=== PATIENT | male | born 1960 | race Caucasian/White ===

== ENCOUNTER → 2023-10-08 | Outpatient (CLI) | payer OTHER, SELFPAY ==
--- NOTE | 2023-10-08 13:05 | CT_ITS ---
STUDY: CT LEFT SHOULDER REASON FOR EXAM: Male, 63 years old. PRE-OP RADIATION DOSAGE (If Supplied By Facility): CTDIvol = ( 31.13 ) mGy, DLP = ( 1034.49 ) mGycm TECHNIQUE: The patient was scanned in a multi detector CT scanner. High resolution transaxial imaging was performed without the administration of intravenous contrast material. Sagittal and coronal images were reconstructed. Individualized dose optimization techniques were used for this CT. COMPARISON: None. FINDINGS: There is tendinosis/partial tearing of the subscapularis tendon with moderate atrophy and fatty infiltration of the subscapularis muscle. Normal glenohumeral articulation. Normal glenoid rim, neck and visualized scapula. Normal humeral head, neck and tuberosities. Normal coracoid process. Normal visualized lateral clavicle. There is mild acromioclavicular arthrosis. There is a Type II morphology (curved), with a neutral orientation. Normal visualized muscles and soft tissue structures. CT/Extremity Upper without Contra IMPRESSION: Tendinosis/partial tearing of the subscapularis tendon with moderate atrophy and fatty infiltration of the subscapularis muscle. Mild acromioclavicular arthrosis. Electronically Signed: Stanford Zimmerman MD at 15:18 EST ,
== END | disposition home or self-care (01) ==
LOC: CT 12:59
PROVIDERS: PCP Family Medicine; Referring Provider Student in an Organized Health Care Education/Training Program; Visit Provider Student in an Organized Health Care Education/Training Program
DX: M19.012 Primary osteoarthritis, left shoulder (principal); M25.512 Pain in left shoulder
CPT/HCPCS: 73200

== ENCOUNTER 2023-10-28 11:21 | Observation (INO) | payer OTHER, SELFPAY ==
[2023-10-08 14:06] LABS: Absolute Lymphocyte Count 1.42 X10^3/uL (0.83-4.51); Absolute Neutrophil Count 5.1 X10^3/uL (2.0-7.7); Basophil# 0.06 X10^3/uL; Basophil% 0.8 % (0-1); Eosinophil# 0.17 X10^3/uL; Eosinophils% 2.3 % (0-5); Hematocrit 44.8 % (40-54); Hemoglobin 15.2 g/dL (13.0-16.5); Lymphocyte # 1.42 X10^3/ul (0.83-4.51); Lymphocyte % 19.1 % (19-41); Mean Corp Hgb Conc 33.9 g/dL (32-36); Mean Corpuscular Hgb 31.3 pg (27.0-32.0); Mean Corpuscular Volume 92.4 fL (80-94); Mean Platelet Vol. 8.9 fl (6.2-12.0); Monocyte# 0.64 X10^3/uL; Monocyte% 8.6 % (0-10); NRBC Flagged by Analyzer 0 % (0-5); Neutrophil # 5.13 X10^3/uL (2.7-7.7); Neutrophil % 68.8 % (47-70); Platelet Count 218 K/mm3 (150-450); RBC Distribution Width CV 12.4 % (11.6-14.6); RBC Distribution Width SD 42.4 fl (35.1-43.9); Red Blood Count 4.85 M/mm3 (4.6-6.2); White Blood Count 7.5 K/mm3 (4.4-11.0)
[2023-10-08 14:59] LABS: Albumin, Serum 3.7 g/dL (3.2-5.0); Anion Gap 4 (5-15); BUN 24 mg/dL (7-18); BUN/Creat Ratio 17.9 RATIO (10-20); Calcium,Total 9.4 mg/dL (8.5-10.1); Chloride 107 mmol/L (98-107); Creatinine, Serum 1.34 mg/dL (0.70-1.30); EST Glomerular Filtration Rate 57 mL/min (>60); Est Glom Filt Rate - Afr Amer 69 mL/min (>60); Glucose 112 mg/dL (74-106); Magnesium 2.4 mg/dL (1.6-2.6); Potassium 4.2 mmol/L (3.5-5.1); Sodium Level 141 mmol/L (136-145)
[2023-10-28] VITALS (13 sets, daily range): BP systolic 121–149; BP diastolic 79–113; PULSE 64–96; RESP 14–22; TEMP 36.4–36.7; O2SAT 92–97; BMI 30.9
--- NOTE | 2023-10-28 | SHO_PTH ---
PATHOLOGY RESULTS PATIENT: SAE BYRD LOC: MS3 U#:[id number] AGE/SX: 63/M [place]OM[place] [facility] [place]10[place]28/[address]: Dr. Kamran Dill DO : 1960 BED: 1 DIS: 10/29/2023 SPEC #: [id number] RECD: 10/28/23 13:19 STATUS: MICHAEL LIVIER #: [id number] DANIEL: 10/28/23 00:[address]: Kamran Dill DEPT: SURGICAL PATHOLOGY RECD BY: Fuentes Parra ENTERED: 10/28/23 13:19 SP TYPE: HUMERUS OTHR DR: Baylee Alexander, STRIPPER APPRENTICE-C Tissues: Humerus, NOS Procedures: Decalcification bone/plaque Surgery Specimen Level IV HEADER OPERATION: ERAS, left reverse total shoulder arthroplasty PRE-OP DIAGNOSIS: Left massive rotator cuff repair TISSUE SUBMITTED: Left humeral head MICROSCOPIC DIAGNOSIS Left humeral head, total shoulder replacement/resection: Humeral head with minimal degenerative osteoarthritic changes. SJ:crystal 11/03/2023 COMMENT Case has been reviewed in consultation with Dr. Stone who concurs with the above diagnosis. IDC:AM MICROSCOPIC DESCRIPTION Slides are reviewed. GROSS DESCRIPTION Received is one container labeled with the patient's name and designated left humeral head. The specimen consists of a humeral head measuring 4.5 x 4.5 x 1.5 cm. The articular surface shows focal area of erosion. No soft tissue is identified. Varnisher Pl[employer] sections are submitted in two cassettes after decalcification. / SPARKLE:crystal 10/28/2023 TC:5 CPT: 72504, 07717
[2023-10-28] MEDS: Acetaminophen 500 MG Tablet 1000 MG PO ×3 (06:07→21:58)
[2023-10-28] MEDS: Lactated Ringers 1,000 ML 999 ML IV ×2 (06:07→09:31)
[2023-10-28] MEDS: Gabapentin 600 MG Tablet PO (06:07)
[2023-10-28] MEDS: Celecoxib 200 MG Capsule 400 MG PO (06:07)
[2023-10-28] MEDS: Magnesium 1 GM over 15 mins IV (06:07)
[2023-10-28 07:17] LABS: Bedside Glucose 118 mg/dL (74-106)
[2023-10-28] MEDS: Cefazolin 2 GM in 0.9% Normal Saline (100mL Bag) 100 ML IV (07:27)
[2023-10-28] MEDS: TXA 1000mg in NS100 100ml (IVPB at Incision) 660 MG IV (07:40)
[2023-10-28] MEDS: Lactated Ringers 1,000 ML 75 ML IV (08:40)
[2023-10-28] MEDS: TXA 1000mg in NS100 100ml (IVPB at Closure) 660 MG IV (09:24)
--- NOTE | 2023-10-28 10:02 | SUR.PHASEI ---
PATIENT WITH FREQUENT NON-PRODUCTIVE COUGH, REPORTEDLY HAD VIRAL INFECTION w/ COUGH A FEW WEEKS AGO AND THIS COUGH IS RESIDUAL.
--- NOTE | 2023-10-28 10:05 | RAD_ITS ---
STUDY: X-RAY - LEFT SHOULDER REASON FOR EXAM: Male, 63 years old. post op -- AP and Lateral X-Ray of operative shoulder in PACU TECHNIQUE: 3 view(s) of the shoulder. COMPARISON: None. FINDINGS: Grossly satisfactory appearance of left total shoulder arthroplasty. Normal articulation. Normal alignment. Normal visualized proximal humerus. The soft tissue structures are unremarkable. Normal visualized pulmonary apex. RAD/Shoulder min 2 Views IMPRESSION: Satisfactory appearance of a left total shoulder arthroplasty. Electronically Signed: Sim Morse MD at 17:08 EST ,
[2023-10-28] MEDS: Lactated Ringers 1,000 ML 125 ML IV ×2 (11:32→20:04)
[2023-10-28] MEDS: Senna/Docusate Sodium 1 Tablet 2 TABLET PO ×2 (11:55→21:58)
[2023-10-28] MEDS: Famotidine 20 MG Tablet PO (11:55)
[2023-10-28] MEDS: Lisinopril 10 MG Tablet PO (11:55)
[2023-10-28] MEDS: Cefazolin 1 GM/50 ML BAG IV ×2 (15:42→23:59)
--- NOTE | 2023-10-28 16:05 | OP.PCM_ITS ---
Report of Operation Date of Procedure: 10/28/23 Description of Surgical Findings:: Preoperative diagnosis: Left shoulder rotator cuff arthropathy Postoperative diagnosis: Left shoulder rotator cuff arthropathy Procedure: Left Reverse total shoulder arthroplasty Surgeon: Kamran Dill DO Associate Professor Of Sociology: Elizabeth Bhat PA-C Anesthesia: General endotracheal Oven Tender: Laron Weiss CRNA Complications: None apparent Drains: None Estimated blood loss: 200 cc Urinary output: None IV fluids: 1200 cc crystalloid Specimens: None Surgical implants: Tornier Aequalis PerFORM+ reversed baseplate 29 mm diameter +3 mm lateralization, standard glenosphere cobalt chrome 39 mm diameter, Tornier perform inlay stem size #3, + 3 mm retentive size number 3 39 mm diameter polyethylene insert, short central post and peripheral screws x4. Surgical indications: This is a 63-year-old male with persistent left shoulder pain. He did have worsening symptoms over the last several months. X-rays revealed rotator cuff arthropathy. MRI was obtained by another provider demonstrated massive left rotator cuff tear at which was chronic and irreparable. I recommended a reverse shoulder arthroplasty. We obtained a preoperative CT scan for planning. The risks, benefits, alternatives the procedure was reviewed with the patient and he agreed to proceed. Risks included but were not limited to bleeding, infection, instability, loss of life or limb, risk of anesthesia, neurovascular injury, persistent pain, stiffness, prolonged immobilization, need for additional surgery, loosening of orthopedic hardware. He expressed understanding and wished to proceed with surgery. Surgical details: Patient arrived to [facility] morning of the procedure and was greeted by the same day surgery staff. Prior to his procedure, I greeted the patient in the preoperative holding area I identified the patient by name, record number, and date of . Informed consent was confirmed. The operative extremity was marked. All questions were answered to patient satisfaction. An interscalene block was administered prior to procedure by anesthesia staff for postoperative and intraoperative analgesia. At time of his procedure, patient was brought to the operative suite and positioned supine on a standard table with a beachchair attachment. General anesthesia was induced after all bony prominences were well-padded. Endotracheal tube was placed. After adequate anesthesia and securing the tube, we prepared the patient to be positioned in the beachchair position. A well- padded wet process miller head was applied. The nonoperative extremity was placed in a well arm gold. He was then brought into the beachchair position after we confirmed an appropriate blood pressure. We then spun the bed 45 degrees. The operative extremity was then prepared. In the butterfly wing of the bed was removed and a well-padded torso strap was applied to secure the patient to the bed. The operative extremity was now free. A preoperative hydrogen peroxide scrub was performed. We then prepped and draped the left upper extremity in normal, sterile orthopedic fashion with ChloraPrep. We then performed a timeout with all parties in attendance in agreement with the side, site, and operation be performed. 2 g Ancef was administered prior to incision by anesthesia staff, as well as 1 g TXA IV. No concerns were voiced and we elected to proceed. I first marked a standard deltopectoral incision just lateral to the coracoid process in line with the long axis of the humerus. Skin was sharply incised with 10 blade scalpel. I then dissected bluntly through the subcutaneous layers and found the fat stripe between the deltoid and pectoralis major. The cephalic vein was then identified and protected. It was retracted laterally with the deltoid. I then bluntly dissected underneath the deltoid with a Tavarez elevator. Alexander retractor was placed. The upper 1 cm of the pectoralis major was released. I then identified the long head of the biceps tendon in the intertubercular groove. This was tenodesed in situ with #2 FiberWire. I then amputated the biceps proximal to the tenodesis site and followed the tendon to the supraglenoid tubercle where it was amputated. This identified the lesser an d greater tuberosities. The supraspinatus was completely torn and retracted with an exposed greater tuberosity. Near complete subscapularis tearing was noted as well. Remaining inferior subscapularis was released with Bovie cautery. Humeral head was then dislocated anteriorly. Appropriate access to the humeral head was confirmed. I then subluxed the humeral head posteriorly with a Fukuda retractor placed around the posterior lip of the glenoid. Inferior capsule was tension. I was able to palpate the axillary nerve. Inferior capsule was then released to the 4 o'clock position of the glenoid face. 3 sided subscapularis release was performed with Bovie cautery. I then remove the Fukuda retractor and redislocated the shoulder anteriorly. I then made a anatomic neck cut of the cartilaginous surface of the humeral head. Sizing plate for a size # 3 stem was utilized to determine appropriate reaming size. A central pin was placed engaging the lateral cortex of the humerus. A size # 3 reamer was used to ream the humeral metaphysis and prepare for the inlay stem. A canal finding reamer was utilized prior to sequential broaching to a size # 3 short stem with excellent rotational and axial purchase in the humerus. I remove the broach handle left the size # [address] I then subluxed the humerus posterior to the glenoid. I then placed retractors around the posterior and anterior glenoid to expose the glenoid. Glenoid labrum was removed with Bovie cautery protecting the axillary nerve. We then used the custom guide from [employer] to position our centering pin , exiting approximately 25 mm from the joint surface along the anterior scapula. Guide was removed and pin was analyzed and compared to preoperative planning. It appeared to be in appropriate position. The Nautilus shaped reamer was then placed over top of the centering pin. I reamed a flat surface of the glenoid. We then removed the reamer and used the cannulated drill for the short central post. Post and baseplate was assembled on the back table. We then inserted the baseplate and central post the assembled baseplate to an appropriate depth with good press-fit purchase. A [place] was used to confirm depth. Cortical screws then were placed in the peripheral holes with good purchase. The baseplate had excellent purchase and the entire scapula would rotate with rotation of the baseplate. We then impacted the 39 mm glenosphere with a standard eccentricity and tightened the locking screw mechanism. We then removed retractors and turned our attention back to the humerus. I placed a standard +3 millimeters retentive polyethylene insert. I then reduced the shoulder. There was excellent range of motion and stability in all planes of motion. We selected this as our final size. We removed trials from the humerus after final dislocation. I copiously irrigated the canal. Broach was placed on hand and then impacted to an appropriate depth. Final + 3 mm retentive polyethylene insert was placed. Final reduction was then performed. We then copiously irrigated the wound with sterile Betadine and normal saline solution. We reapproximated the interval with 0 Vicryl suture. Subcutaneous layers were reapproximated with 2 -0 Vicryl suture. Skin was finally running V- Loc 3-0 Monocryl suture and Dermabond. A sterile silver Mepilex dressing was applied. Patient was then placed in an ultra sling. Patient tolerated procedure well without complication. He was positioned back in the supine position extubated in the operative suite. He was [place] the [place] and subsequently to PACU in stable condition. Need for skilled clinical assistant: Elizabeth Bhat PA-C was critical to the outcome of the case. During the course of the procedure the physician clinical assistant played a vital role. Her intimate knowledge of my steps in the procedure aided in safe and expedient completion of the procedure. The PA played a vital role in positioning particularly in obtaining the appropriate positioning. The PA was also vital in the retraction of soft tissues during the exposure and protecting vital structures. The PA was also vital and protecting soft tissues during times of bony cuts. She also played a vital role in closure with my direct supervision. The PA was also important during reduction and dislocation of the joint and trials intraoperatively. Intraoperative medications: 2 g Ancef IV, 1 g TXA IV x2 Post Operative Plan: Patient was placed in observation overnight for early convalescence and medical monitoring. Patient lives at home alone and is likely to be discharged home if stable tomorrow. Weightbearing: Nonweightbearing left upper extremity, okay for pendulums. Range of motion of wrist elbow and hand as tolerated. Antibiotics: 2 g Ancef IV prior to incision, 24 hours IV antibiotics postoperatively DVT Prophylaxis: Aspirin enteric-coated 81 mg twice daily starting tomorrow Pratt: None Dressing: Maintain silver dressing x7 days. Okay to shower dressing on started on day 4 X-Rays: 2 weeks postop in the office Pain Medication: Oxycodone Rx upon discharge Follow-up: 2 weeks post-operatively with me in the office
[2023-10-28] MEDS: oxyCODONE 5 MG Tablet PO (21:57)
[2023-10-29] VITALS: BP 154/94; PULSE 81; RESP 16; TEMP 36.5; O2SAT 92
[2023-10-29] MEDS: oxyCODONE 5 MG Tablet PO ×2 (02:29→06:40)
[2023-10-29] MEDS: Lactated Ringers 1,000 ML 125 ML IV (04:14)
[2023-10-29 05:31] VITALS: BP 162/109; PULSE 77; RESP 18; TEMP 36.6; O2SAT 94
[2023-10-29] MEDS: Acetaminophen 500 MG Tablet 1000 MG PO (05:34)
[2023-10-29 06:31] LABS: Hematocrit 40.2 % (40-54); Hemoglobin 12.9 g/dL (13.0-16.5); Mean Corp Hgb Conc 32.1 g/dL (32-36); Mean Corpuscular Hgb 30.3 pg (27.0-32.0); Mean Corpuscular Volume 94.4 fL (80-94); Mean Platelet Vol. 8.9 fl (6.2-12.0); Platelet Count 230 K/mm3 (150-450); RBC Distribution Width CV 12.3 % (11.6-14.6); RBC Distribution Width SD 42.4 fl (35.1-43.9); Red Blood Count 4.26 M/mm3 (4.6-6.2); White Blood Count 16.6 K/mm3 (4.4-11.0)
[2023-10-29 06:47] LABS: Anion Gap 4 (5-15); BUN 19 mg/dL (7-18); BUN/Creat Ratio 15.2 RATIO (10-20); Calcium,Total 8.9 mg/dL (8.5-10.1); Chloride 107 mmol/L (98-107); Creatinine, Serum 1.25 mg/dL (0.70-1.30); EST Glomerular Filtration Rate 62 mL/min (>60); Est Glom Filt Rate - Afr Amer 75 mL/min (>60); Glucose 111 mg/dL (74-106); Potassium 4.1 mmol/L (3.5-5.1); Sodium Level 137 mmol/L (136-145)
--- NOTE | 2023-10-29 07:14 | PN.ORTHO_ITS ---
Subjective Subjective Patient seen and examined. Denies any new complaints. Patient believes his nerve block wore off around 1 AM last night. He states his pain is well- controlled with current pain regimen. Denies fevers, chills, nausea or vomiting, chest pain or shortness of breath. Patient continues with occasional nonproductive General cough but states the oxycodone is helping with cough suppression. Objective Data Objective Data Vital Signs: Vital Signs Temp Pulse Resp BP Pulse Ox O2 Del Method O2 Flow Rate 97.9 F 77 18 162/109 H 94 Room Air 4 10/29/23 05:31 10/29/23 05:31 10/29/23 05:31 10/29/23 05:31 10/29/23 05:10/29/23 05:10/28/23 10:49 Oxygen Flow Rate (L/min) 4 Oxygen Delivery Method Room Air Weight: 209 lb 7.026 oz Body Mass Index (BMI) 30.9 Intake & Output: Intake and Output for Last 24 Hours 10/27/23 10/28/23 10/29/23 23:59 23:59 23:59 Intake Total 4482.00 / 4482.00 2150 / 2150 Balance 4482.00 / 4482.00 215 / 0 Lab / Micro Data 10/29/23 05:22 10/29/23 05:22 Labs: Laboratory Results - last 24 hr 10/28/23 06:03: POC Glucose 118 H 10/29/23 05:22: WBC 16.6 H, RBC 4.26 L, Hgb 12.9 L, Hct 40.2, MCV 94.4 H, MCH 30.3, MCHC 32.1, RDW Std Deviation 42.4, RDW Coeff of Alise 12.3, Plt Count 230, MPV 8.9, Sodium 137, Potassium 4.1, Chloride 107, Carbon Dioxide 26.0, Anion Gap 4 L, BUN 19 H, Creatinine 1.25, Estim Creat Clear Calc 68.80, Est GFR (MDRD) Af Amer 75, Est GFR (MDRD) Non-Af 62, BUN/Creatinine Ratio 15.2, Glucose 111 H, Calcium 8.9 Micro: Microbiology 10/15/23 11:40 Nasal Secretion Nasal Screen MRSA/MSSA - Final Radiography Diagnostic Testing: Radiology Impression Shoulder X-Ray 10/28/23 10:05 IMPRESSION: Satisfactory appearance of a left total shoulder arthroplasty. Electronically Signed: Sim Morse MD at 17:08 EST , Physical Exam Narrative General - A&Ox3, NAD. VSS/AF. Left upper Extremity -UltraSling in place. SILT & motor intact in radial, ulnar, musculocutaneous, axillary, and median nerve distributions. Radial, ulnar pulses 2+. Compartments soft and compressible. BCR in finger tips. Incisional dressing C/D/I. Assessment & Plan Assessment/Plan (1) Postoperative pain: PLAN: POD# 1 s/p left reverse shoulder arthroplasty - Pain control - OT -awaiting initial eval. Okay for range of motion left elbow wrist and hand, pendulums left shoulder. - DVT PPX -aspirin 81 mg twice daily, SCDs, EDWARD valderrama, early mobilization -Patient doing well. Plan for discharge home today after seen by occupational therapy. Follow-up in 2 weeks for wound check, x-rays, and and initiation of outpatient physical therapy.
--- NOTE | 2023-10-29 07:14 | DCINST_ITS ---
Discharge Instructions Follow Up Care Test Results: Test results from this visit will be discussed in further detail at your follow- up appointment, if applicable. Discharge Plan Admission Admit Date/Time: 10/28/23 11:21 Primary Reason for Your Visit: Left reverse shoulder arthroplasty Attending Provider: Kamran Dill Primary Care Provider: Baylee Aelxander NP Instructions Additional Instructions / Restrictions: Follow preprinted instructions from your surgeons office Discharge Orders/Prescriptions Prescriptions: New acetaminophen 500 mg Tablet 1,000 mg PO Q8 7 Days Qty: 42 0RF aspirin 81 mg Tablet,Delayed Release (Dr/Ec) 81 mg PO BID 28 Days Qty: 56 0RF sennosides-docusate sodium [Stool Softener-Stimulant Laxat] 8.6-50 mg Tablet 2 tab PO BID 7 Days Qty: 28 0RF meloxicam 7.5 mg Tablet 7.5 mg PO BID 30 Days Qty: 60 0RF oxycodone 5 mg Tablet 5 - 10 mg PO Q4H PRN PRN (Reason: Pain Score 4-10) 7 Days Qty: 42 0RF Continued lisinopril 10 mg tablet 10 mg PO DAILY Discontinued acetaminophen [Tylenol] 325 MG tablet 650 mg PO Q6H PRN PRN (Reason: Pain Or Fever) Patient Comments: mild pain reliever meloxicam 15 mg tablet 15 mg PO DAILY Referrals / Follow Up: Kamran Dill DO [Med Staff - Active Staff] - 11/12/23 Jose F Trejo MD [Med Staff - Active Staff] - Disposition Disposition (needs filled in before D/C Order can be placed): Home, Self Care
[2023-10-29] MEDS: Lisinopril 10 MG Tablet PO (07:27)
[2023-10-29] MEDS: Aspirin E.C. 81 MG Tablet PO (07:27)
[2023-10-29] MEDS: Senna/Docusate Sodium 1 Tablet 2 TABLET PO (07:27)
[2023-10-29] MEDS: Famotidine 20 MG Tablet PO (07:27)
[2023-10-29] MEDS: Meloxicam 7.5 MG Tablet PO (07:27)
[2023-10-29 08:14] VITALS: BP 154/101; PULSE 59; RESP 14; TEMP 36.5; O2SAT 94
--- NOTE | 2023-10-29 09:54 | CASEMGMT ---
ADRIEL DALLAS Assessment Face to Face with patient for initial transition planning/care coordination assessment. ADRIEL DALLAS introduced self and role at [facility], pt voices understanding. Pt is A&Ox4 and is resting comfortably in chair and is calm. Care providers, pharmacy, and demographics verified. Admitting dx: Total Lt Shoulder LACE Strata: 1 PCP: Baylee Alexander (FUR BLOWER) Specialists: Aniyah Headley Pharmacy: [facility] Insurance: [employer] Prescription Benefit: Yes LNOK: Shazia Mendez (Daughter) Living Arrangements: Pt lives alone in a single story home with a basement with handrails and flat entrance. Pt states the basement steps are equipped with handrails. Denies issues. ADLs/IADLs: Ind Transportation: Drives. Pt has a SO that drives. DME: Pt states he has a walker and cane and lift chair at home but does not use. States walk in shower has grab bars. Denies all other DME. HHC/SNF: Denies Pt?s goal: Home Plan: DC home today via his SO with no additional needs. Shanda Pacheco RN, CM
--- NOTE | 2023-10-29 09:56 | PHA.DC.MC.R ---
Pharmacy [facility] has performed discharge medication reconciliation and counseling for this patient. The patient's discharge medication list was reviewed for discrepancies and discrepancies were resolved. The patient was counseled on the following discharge medications and changes in medications for homegoing were reviewed. The Reason for Use, instructions for use, and potential side effects were reviewed for all new medications. The patient's questions regarding all of their medications were answered. 1. Acetaminophen 1000 mg PO Q8H x 7 days 2. Aspirin 81 mg PO BID x 4 weeks 3. Meloxicam 7.5 mg PO BID 4. Oxycodone 5-10 mg PO Q4H PRN 5. Senna/docusate 2 tabs PO BID The patient was able to verbally demonstrate an understanding of their discharge medications. Medications at Discharge Home Medications lisinopril 10 mg tablet 10 mg PO DAILY HYPERTENSION 10/01/23 acetaminophen 500 mg tablet 1,000 mg (2 x 500 mg) PO Q8 7 days #42 tabs 10/29/23 aspirin 81 mg tablet,delayed release 81 mg PO BID 4 weeks #56 tabs 10/29/23 meloxicam 7.5 mg tablet 7.5 mg PO BID 30 days #60 tabs 10/29/23 oxycodone 5 mg tablet 5 - 10 mg (1 - 2 x 5 mg) PO Q4H PRN PRN Pain Score 4-10 7 days #42 tabs 10/29/23 sennosides 8.6 mg-docusate sodium 50 mg tablet (Stool Softener-Stimulant Laxative) 2 tab PO BID 7 days #28 tabs 10/29/23
== END 2023-10-29 10:32 | disposition home or self-care (01) ==
LOC: SDC 11:44 → MS3 11:44
PROVIDERS: Admitting Provider Student in an Organized Health Care Education/Training Program; PCP Nurse Practitioner Family; Referring Provider Student in an Organized Health Care Education/Training Program; Visit Provider Student in an Organized Health Care Education/Training Program
PROC: (CPT 23472; principal; 2023-10-28 07:00)
DX: M19.012 Primary osteoarthritis, left shoulder (principal); I10 Essential (primary) hypertension; M75.102 Unspecified rotator cuff tear or rupture of left shoulder, not specified as traumatic; Z79.899 Other long term (current) drug therapy
CPT/HCPCS: 23472; 01638; 64415; 36415; 73030; 80048; 82040; 82962; 83735; 85025; 85027; 87081; 88305; 88311; 93005; 94668; 96361; 96365; 96366; 97166; 99221; C1776; J7120; G0378; J2405; J3475

== ENCOUNTER → 2024-07-06 | Outpatient (CLI) | payer OTHER, SELFPAY ==
--- NOTE | 2024-07-06 16:54 | CT_ITS ---
EXAM: CT RIGHT LOWER EXTREMITY WITHOUT INTRAVENOUS CONTRAST CLINICAL INDICATION: PRE OP/OA TECHNIQUE: Helically acquired images were obtained of the right lower extremity without intravenous contrast. 2-D reformats were performed by the technologist. CTDIvol = ( 18.76 ) mGy, DLP = ( 1386.61 ) mGycm This CT exam was performed using one or more of the following dose reduction techniques: automated exposure control, adjustment of the mA and/or kV according to patient size, and/or use of iterative reconstruction technique. COMPARISON: No relevant prior studies available. FINDINGS: BONES/JOINTS: Mild to moderate right hip osteoarthrosis. A right hip joint effusion appears to be present. Moderate to severe tricompartmental osteoarthrosis involving the knee which is worse at the medial femorotibial compartment. At least moderate suprapatellar joint effusion. No acute or healing fracture or malalignment. No unusual lytic or sclerotic lesions of bone. SOFT TISSUES: Moderate to large suprapatellar joint effusion. No soft tissue swelling or gas. No radiopaque foreign body. CT/Extremity Lower without Contra IMPRESSION: 1. 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 2. Ancillary findings as above. Electronically Signed: Pedro Boothe MD at 4:48 EDT ,
== END | disposition home or self-care (01) ==
LOC: CT 16:52
PROVIDERS: PCP Nurse Practitioner Family; Referring Provider Physician Assistant; Visit Provider Physician Assistant
DX: M17.11 Unilateral primary osteoarthritis, right knee (principal)
CPT/HCPCS: 73700

== ENCOUNTER 2024-07-10 05:24 | Day surgery (SDC) | payer OTHER, SELFPAY ==
[2024-06-19 16:23] LABS: Absolute Lymphocyte Count 1.64 X10^3/uL (0.83-4.51); Absolute Neutrophil Count 7.4 X10^3/uL (2.0-7.7); Basophil# 0.07 X10^3/uL; Basophil% 0.7 % (0-1); Eosinophil# 0.15 X10^3/uL; Eosinophils% 1.5 % (0-5); Hematocrit 44.6 % (40-54); Hemoglobin 14.5 g/dL (13.0-16.5); Lymphocyte # 1.64 X10^3/ul (0.83-4.51); Lymphocyte % 16.1 % (19-41); Mean Corp Hgb Conc 32.5 g/dL (32-36); Mean Corpuscular Hgb 30.2 pg (27.0-32.0); Mean Corpuscular Volume 92.9 fL (80-94); Mean Platelet Vol. 8.6 fl (6.2-12.0); Monocyte# 0.81 X10^3/uL; NRBC Flagged by Analyzer 0 % (0-5); Neutrophil # 7.41 X10^3/uL (2.7-7.7); Neutrophil % 72.7 % (47-70); Platelet Count 236 K/mm3 (150-450); RBC Distribution Width CV 12.8 % (11.6-14.6); RBC Distribution Width SD 43.5 fl (35.1-43.9); White Blood Count 10.2 K/mm3 (4.4-11.0)
[2024-06-19 17:01] LABS: Albumin, Serum 3.6 g/dL (3.2-5.0); Anion Gap 8 (5-15); BUN 21 mg/dL (7-18); Calcium,Total 9.3 mg/dL (8.5-10.1); Chloride 105 mmol/L (98-107); EST Glomerular Filtration Rate 54 mL/min (>60); Est Glom Filt Rate - Afr Amer 66 mL/min (>60); Glucose 101 mg/dL (74-106); Magnesium 2.5 mg/dL (1.6-2.6); Potassium 4.4 mmol/L (3.5-5.1); Sodium Level 140 mmol/L (136-145)
[2024-07-10] VITALS (12 sets, daily range): BP systolic 108–156; BP diastolic 77–105; PULSE 53–90; RESP 13–18; TEMP 36.2–36.8; O2SAT 91–99; BMI 31.6
[2024-07-10] MEDS: Magnesium 1 GM over 15 mins IV (06:08)
[2024-07-10] MEDS: Lactated Ringers 1,000 ML 15 ML IV (06:08)
[2024-07-10] MEDS: Gabapentin 600 MG Tablet PO (06:09)
[2024-07-10] MEDS: Acetaminophen 500 MG Tablet 1000 MG PO ×2 (06:09→14:05)
[2024-07-10] MEDS: Celecoxib 200 MG Capsule 400 MG PO (06:10)
[2024-07-10] MEDS: Vancomycin HCl 1,500 MG in 0.9% Normal Saline (500mL Bag) 500 ML 250 MG IV (06:30)
--- NOTE | 2024-07-10 07:05 | PRE.ANES_ITS ---
ASA Classification* ASA Classification ASA Classification: 2 Assessment & Plan Anesthesia* Anesthesia Assessment Anesthesia Assessment: Discussed sedation and/or anesthesia options, risks, benefits, and alternatives with patient/parents/legal guardian/POA. Questions invited. The patient/parents/legal guardian/POA seems to understand and agrees to proceed with anesthesia plan. Reviewed the physical assessment, medical history, allergy history and patient home medications list prior to surgery/procedure/anesthetic and documented any changes. Performed airway and anesthesia risk assessments. Anesthesia Type Anesthesia Type: Spinal (block consented) Anesthesia Focused Assessment* Temperature: 98.1 F Pulse Rate: 63 Blood Pressure: 156/105 Respiratory Rate: 16 Pulse Ox: 97 Airway Assessment Mouth opens: >3 cm Mallampati Score: II Focused Labs Anesthesia Preop lab: CBC WBC 10.2 K/mm3 (4.4-11.0) 06/19/24 16:09 RBC 4.80 M/mm3 (4.6-6.2) 06/19/24 16:09 Hgb 14.5 g/dL (13.0-16.5) 06/19/24 16:09 Hct 44.6 % (40-54) 06/19/24 16:09 Plt Count 236 K/mm3 (150-450) 06/19/24 16:09 CHEMISTRY Potassium 4.4 mmol/L (3.5-5.1) 06/19/24 16:09 Sodium 140 mmol/L (136-145) 06/19/24 16:09 Magnesium 2.5 mg/dL (1.6-2.6) 06/19/24 16:09 Phosphorus 3.1 mg/dL (2.5-4.9) 05/23/14 05:45 BUN 21 mg/dL (7-18) H 06/19/24 16:09 Creatinine 1.40 mg/dL (0.70-1.30) H 06/19/24 16:09 Glucose 101 mg/dL (74-106) 06/19/24 16:09 POC Glucose 118 mg/dL (74-106) H 10/28/23 06:03 TSH 1.73 uIU/mL (0.358-3.74) 05/03/15 11:11 COAG Pre-Assessment Diagnosis/Proposed Procedure Planned Operative Procedure(s): (R) ROBOTIC ASSISTED RIGHT TOTAL KNEE ARTHROPLASTY, ERAS Anesthesia History 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 When Was Last Pacemaker Check QUESTION #4 FULL TEXT: You/Your Family Experience fever (hyperthermia) with Anesthesia Last Oral Intake Last Oral intake: Last Oral Intake NPO since 06:10 07/10/24 06:12 Meds taken in AM with sips of Yes 07/10/24 06:12 water? Meds patient instructed to see mar 07/10/24 06:12 take am of surgery PONV PONV - computer help desk specialist: PONV - computer help desk specialist Female No 06/16/24 15:22 HX of Motion Sickness No 06/16/24 15:22 HX of N/V After Surgery No 06/16/24 15:22 Non-Smoker Yes 06/16/24 15:22 Duration of Surgery greater Yes 06/16/24 15:22 than 60 minutes Number of Risk Factors 2 06/16/24 15:22 PONV Score Moderate Risk 06/16/24 15:22 Height & Weight Height & Weight: Anesthesia: Height & Weight Height 5 ft 9 in 07/10/24 06:12 Weight: 97.069 kg 07/10/24 06:12 Body Mass Index (BMI) 31.6 07/10/24 06:12 Respiratory Assessment Respiratory Assessment - computer help desk specialist: Respiratory Tract Infection Hx - computer help desk specialist Hx Respiratory Tract Infection No 06/16/24 15:22 STOP Sleep Apnea STOP Sleep Apnea - computer help desk specialist: STOP Sleep Apnea - computer help desk specialist Hx Hypertension Yes 06/16/24 15:22 Hx Sleep Apnea Yes 06/16/24 15:22 CPAP Yes: UNABLE TO WEAR MASK 06/16/24 15:22 BIPAP No 06/16/24 15:22 Do you snore loudly (louder than talking or can be heard Do you often feel tired/ fatigued/ sleepy during daytime? Has anyone observed you stop breathing during sleep? STOP Results Positive 06/16/24 15:22 QUESTION #5 FULL TEXT : Do you snore loudly (louder than talking or can be heard through closed doors)? 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 Specify any problems Hx of Preganancy in last 3 N/A 06/16/24 15:22 Months Nurse Filling Out Transfusion NBUCHER 06/16/24 15:22 & Questions: Date: 06/16/24 06/16/24 15:22 Time: 15:23 06/16/24 15:22 Patient unable to answer at this time (ie. confused, unrespo /Reproduction History /Reproductive History - computer help desk specialist: /Reproductive Hx- computer help desk specialist Hx Now Gestational Age (in weeks): EDC: Hx Hx Para Hx Section SAB Active Medications Active Medications: Current Medications Generic Name Dose Route Start Last Admin Trade Name Leatha PRN Reason Stop Dose Admin Acetaminophen 1,000 mg 07/10/24 08:00 07/10/24 06:09 Acetaminophen 500 Mg Tablet PO 07/10/24 08:01 1,000 mg X1 ONE Administration Celecoxib 400 mg 07/10/24 08:00 07/10/24 06:10 Celecoxib 200 Mg Capsule PO 07/10/24 08:01 400 mg X1 ONE Administration Sodium Chloride 77.4 ml/ 0 ml 07/10/24 08:00 Ropivacaine 200 mg/ OPERA.SITE 07/10/24 08:01 Epinephrine HCl 0.6 mg/ X1 ONE Ketorolac Tromethamine 30 mg/ Morphine Sulfate 5 mg Dexamethasone Sodium Phosphate 10 mg 07/10/24 08:00 Dexamethasone 10 Mg/Ml Vial IV 07/10/24 08:01 X1 ONE Gabapentin 600 mg 07/10/24 08:00 07/10/24 06:09 Gabapentin 600 Mg Tablet PO 07/10/24 08:01 600 mg X1 ONE Administration Cefazolin Sodium 2 gm/ Sodium 110 mls @ 150 mls/hr 07/10/24 08:00 Chloride IV 07/10/24 08:43 PREOP ONE Tranexamic Acid 1,000 mg/ 110 mls @ 660 mls/hr 07/10/24 08:00 Sodium Chloride IV 07/10/24 08:09 X1 ONE Tranexamic Acid 1,000 mg/ 110 mls @ 660 mls/hr 07/10/24 09:00 Sodium Chloride IV 07/10/24 09:09 X1 ONE Lactated Ringer's 1,000 mls @ 125 mls/hr 07/10/24 10:00 IV 07/10/24 17:59 .Q8H NARESH Vancomycin HCl 1,500 mg/ 530 mls @ 250 mls/hr 07/10/24 06:30 07/10/24 06:30 Sodium Chloride IV 07/10/24 08:37 250 mls/hr PREOP ONE Administration Magnesium Sulfate 1 gm/ 102 mls @ 408 mls/hr 07/10/24 08:00 07/10/24 06:40 Dextrose IV 07/10/24 08:14 Infused X1 ONE Infusion Lactated Ringer's 1,000 mls @ 15 mls/hr 07/10/24 05:45 07/10/24 06:08 IV 15 mls/hr .Q48H NARESH Administration Insulin Human Lispro 1 - 6 unit 07/10/24 08:00 Insulin Lispro 100 Unit/Ml Insuln.Pen SC 07/10/24 14:00 Q4H PRN PRN BG>/= 180, SEE PROTOCOL Protocol PFSH Medical History MRSA (methicillin resistant staph aureus) culture positive Wears glasses Wears contact lenses Alcohol use Seizures Non-smoker Sleep apnea History of echocardiogram Hypertension Home Medications ?Medication ?Instructions ?Recorded ?Last Taken ?Type ascorbic acid (vitamin C) 500 mg 500 mg PO DAILY 06/16/24 Unknown History capsule,extended release (Vitamin C) losartan 25 mg tablet 25 mg PO DAILY 06/16/24 07/10/24 History magnesium 200 mg tablet 500 mg PO DAILY 06/16/24 Unknown History Allergy/AdvReac Type Severity Reaction Status Date / Time No Known Allergies Allergy Verified 07/10/24 05:58 Surgical History History of reverse total replacement of right shoulder joint (~10/2023) History of shoulder surgery History of hernia surgery History of back surgery Social History Smoking Status: Never smoker Review of Systems (Anesthesia) ROS Narrative System reviewed and no additional complaints, except as documented.
--- NOTE | 2024-07-10 07:30 | KNEE_PTH ---
PATIENT: SAE BYRD [place] [facility] [id number] AGE/SX: 64/M ROOM: RE07/10/[address]: Dr. Kamran Dill DO : 1960 BED: DIS: 07/10/2024 SPEC #: [id number] RECD: 07/10/24 11:07 STATUS: MICHAEL REErik #: [id number] DANIEL: 07/10/24 07:[address]: Kamran Dill DEPT: SURGICAL PATHOLOGY RECD BY: Konstantin Power ENTERED: 07/10/24 11:41 SP TYPE: TOTAL KNEE OTHR DR: KISHA Bowers Tissues: Knee, NOS Procedures: Decalcification bone/plaque Surgery Specimen Level IV HEADER OPERATION: Robotic assisted total knee arthroplasty PRE-OP DIAGNOSIS: Severe grade IV osteoarthritis right knee TISSUE SUBMITTED: Bone and soft tissue of right knee MICROSCOPIC DIAGNOSIS Bone and tissue of right knee, total knee resection: Severe degenerative joint disease. Polarizable crystals consistent with pseudogout. AM: 07/13/2024 MICROSCOPIC DESCRIPTION Slides are reviewed. GROSS DESCRIPTION Received is one container designated bone and soft tissue right knee. The specimen consists of multiple fragments of braxton-yellow bone measuring in aggregate 11.0 x 11.0 x 3.0 cm. Also in the specimen container are multiple fragments of yellow-white soft tissue predominantly consists of fibrocartilaginous tissue measuring in aggregate 6.0 x 5.5 x 1.2 cm. Soft tissue shows focal chalky-white deposits. A number of bony fragments contain articular surfaces consistent with tibial plateau and femoral condyle and displaying prominent osteophyte formation, eburnation and bone erosion. Guide Setter sections are submitted in two cassettes as follows: 1 - soft tissue, 2 - bone after decalcification. / SPARKLE. 07/10/2024 TC:5 CPT: 07911, 09721
[2024-07-10] MEDS: Cefazolin 2 GM in 0.9% Normal Saline (100mL Bag) 100 ML IV (07:35)
[2024-07-10] MEDS: TXA 1000mg in NS100 100ml (IVPB at Incision) 660 MG IV (07:49)
[2024-07-10] MEDS: dexAMETHasone 10 MG/ML Vial IV (07:52)
[2024-07-10] MEDS: TXA 1000mg in NS100 100ml (IVPB at Closure) 660 MG IV (08:46)
[2024-07-10] MEDS: JPS (Morphine 10mg/ml) OPERA.SITE (08:56)
[2024-07-10 09:24] LABS: Bedside Glucose 98 mg/dL (74-106)
--- NOTE | 2024-07-10 09:32 | RAD_ITS ---
INDICATION: post op -- in PACU EXAMINATION/TECHNIQUE: X-RAY - RIGHT XR Knee 1 or 2 Views 3 VIEWS COMPARISON: Prior study dated: 08/09/2016 FINDINGS: SOFT TISSUES: Skin nati. Soft tissue swelling and gas in soft tissues consistent with recent surgery. BONES/JOINTS: Status post total knee arthroplasty. Unremarkable alignment. No sclerotic or destructive changes observed. RAD/Knee 1 or 2 Views IMPRESSION: Status post knee arthroplasty. Electronically Signed: Rohan Stapleton MD at 10:43 EDT ,
--- NOTE | 2024-07-10 09:34 | PCM.POST.ANE ---
Anesthesia: Postop Eval I Current Vital Signs Temperature: 98.2 F Pulse Rate: 64 Blood Pressure: 108/77 Respiratory Rate: 13 Pulse Ox: 99 Oxygen Delivery Method: Room Air Assessment Airway patent: Yes Spontaneous unlabored respirations: Yes Mental status: Awake and Calm nausea: No Vomiting: No Anesthesia Complication: No Fluid Hydration Crystalloid volume administer (ml): 600 Total IV fluid infused: 600 Progress Note Anesthesia document: Postop Eval 1 completed: Yes
--- NOTE | 2024-07-10 09:37 | PCM.OPRPT ---
Report of Operation Date of Procedure: 07/10/24 Description of Surgical Findings:: Preoperative diagnosis: Right knee primary osteoarthritis Postoperative diagnosis: Right knee primary osteoarthritis Procedure: Robotic arm assisted right total knee arthroplasty Surgeon: Kamran Dill DO Service Director: Elizabeth Bhat PA-C Anesthesia: Spinal with sedation, adductor canal block Anesthesiologist: Dr. Stevenson Complications: None apparent Drains: None Estimated blood loss: 100 cc Urinary output: None recorded IV fluids: 1000 cc crystalloid Specimens: Total knee resections Surgical implants: [place] triathlon cruciate retaining femoral #4 press-fit, primary tibial baseplate #5 press-fit, triathlon X3 tibial bearing insert CS 11 mm Indications: This is a 64-year-old male seen in the outpatient setting diagnosed with left knee osteoarthritis with significant varus deformity. He failed nonoperative management with intra-articular corticosteroid injections, activity modification, bracing, [id number] analgesics. X-rays revealed grade 4 medial compartment changes. I recommended a right total knee arthroplasty. The risk, benefits, alternatives to procedure reviewed with patient at length and he agreed to proceed. Risks included but were not limited to bleeding, infection, loss of life or limb, need for additional surgery, persistent pain, intraoperative or postoperative fracture, instability, loosening of components, wound complications, stiffness, neurovascular injury, DVT or PE. Patient expressed understanding these risks and wished to proceed with surgery. Informed consent was obtained in the outpatient setting. Description of procedure: Patient was identified in the preoperative holding area by name, medical record number, and date of . Informed consent was confirmed with the patient. The operative knee was marked with a surgical marker. At time of his procedure, patient brought to the operative suite and positioned supine a standard operating table. Anesthesia then administered a spinal anesthetic. He was then repositioned in the supine position with all bony prominences well-padded. We then placed a well-padded pneumatic tourniquet on the right upper thigh. The right upper extremity was brought across patient's chest throughout the procedure. We then prepped and draped the right lower extremity in a normal, sterile orthopedic fashion. We performed a timeout with all parties in attendance in agreement with the side, site, operation be performed. No concerns were voiced and would like to proceed with surgery. 2 g Ancef was administered prior to the incision by anesthesia staff as well as 1 g IV TXA. First exsanguinated the right lower extremity with a Esmarch bandage. Tourniquet was inflated to 250 mmHg which remained up for approximately 45 minutes. Esmarch was removed. I planned a standard midline approach to the left knee approximately 15 cm in length. Skin was sharply incised with a 10 blade scalpel developing full-thickness layers down to the retinaculum. Layers were developed identifying the VMO. I then planned a standard medial parapatellar arthrotomy performed in flexion. The anterior horn of the medial meniscus was released. Hoffa's fat pad was then released. I then everted the patella in extension and brought the knee into 90 degrees of flexion. The anterior horn of the lateral meniscus was then released. The ACL was split in its mid substance with a 10 blade. We then brought the knee back into extension. The patella was examined. Osteophytes were noted but only grade 1?2 chondromalacia was apparent. Peripheral osteophytes were removed with a rongeur. I elected to leave the patella quechan without resurfacing. I then placed pins in the metaphyseal distal femur medial to lateral for the Jake arrays. In similar fashion, I made a 2 cm incision approximately a handsbreadth distal to the tibial tubercle along the medial aspect of the tibia, drilling 2 bicortical pins for the tibial array. The knee was brought into flexion. The patella was subluxed laterally but not everted. Medial lateral retractors were placed. We then utilized the [employer] software to confirm our planned surgical procedure and oriented with the patient's osseous anatomy. All checks with the [employer] system were confirmed. Patient had a significant flexible varus deformity after performing stress examination utilizing the [employer] software. We elected to place the tibial baseplate in approximately 0 degrees of varus to allow for appropriate balancing. Sawblade was then brought in. I first started with the tibial cut, ensuring protection of the MCL and patellar tendon. A tibial wafer was then excised. I then proceeded to make the posterior femoral, anterior, anterior chamfer cuts with the same blade. Ligaments were protected with [employer] retractors. Sawblade was then exchanged to perform the distal femoral and posterior chamfer cuts. The robot was then removed from the surgical field. Remaining loose bone and meniscus was excised carefully. Posterior osteophytes were removed from the distal femur with a curved osteotome and rongeur. Trial components were then placed with an 11 mm poly. Balance was excellent in both extension and 90 degrees flexion. No mid flexion instability was apparent Patella was trialed. Tracking was excellent. We then marked for tibial baseplate. Distal femoral pegs were drilled. Tibial keel was punched. Trials were removed. Periarticular block was administered. The wound was copiously irrigated with normal saline solution. Components were then impacted in place with excellent pullout strength. Tourniquet was deflated. Hemostasis was excellent. An additional 1 g TXA was administered IV. I selected a size11 mm polyethylene which was placed and impacted per lithographing machine operator recommendations. Final components appeared very well balanced with excellent range of motion. The wound was copiously irrigated with normal saline solution. Capsule was closed watertight with #1 strata fix barbed suture. Deeper bursal layer was reapproximated with 0 Vicryl suture. Dermis was reapproximated buried interrupted 2-0 Vicryl suture. Skin was finally reapproximated nati. Patient tolerated the procedure well without apparent complication. He was safely awakened in the operative suite, transferred to his hospital bed and subsequently to PACU in stable condition. Need for skilled certified nursing assistant instructor: Elizabeth Bhat PA-C was critical to the outcome of the case. During the course of the procedure the physician certified nursing assistant instructor played a vital role. Her intimate knowledge of my steps in the procedure aided in safe and expedient completion of the procedure. The PA played a vital role in positioning particularly in obtaining the appropriate positioning. The PA was also vital in the retraction of soft tissues during the exposure and projecting vital structures. The PA was also vital and protecting soft tissues during times of bony cuts. She also played a vital role in closure with my direct supervision. The PA was also important during reduction and dislocation of the joint and trials intraoperatively. Post Operative Plan: Plan is to discharge the patient after meeting same-day surgery criteria being seen by physical therapy. Weightbearing: Range of motion and weightbearing as tolerated right lower extremity. Antibiotics: Ancef 1 g prior to discharge DVT Prophylaxis: Multimodal with 81 mg aspirin twice daily, SCDs, EDWARD hose, early mobilization Pratt: None Dressing: Maintain silver dressing x5 days X-Rays: 2-week x-rays in the office. Follow-up: 2 weeks in my office for staple removal
--- NOTE | 2024-07-10 11:50 | POSTOPAN2_ITS ---
Anesthesia Postop Eval I Sum Postop Eval Completion status Anesthesia document: Postop Eval 1 completed: Yes Anesthesia Postop Eval I Summary Anesthesia Postop Eval I Summary: Anesthesia Postop Eval I: Assessment Summary Airway patent Yes 07/10/24 09:35 CARBON PASTE [email or web address] [email or web address] Spontaneous unlabored Yes 07/10/24 09:35 CARBON PASTE MIXER [email or web address] respirations Mental status Awake,Calm 07/10/24 09:35 CARBON PASTE [email or web address] [email or web address] nausea No 07/10/24 09:35 CARBON PASTE [email or web address] [email or web address] Vomiting No 07/10/24 09:35 CARBON PASTE [email or web address] [email or web address] Anesthesia Postop Eval I: Fluid Summary Crystalloid volume administer 600 07/10/24 09:35 CARBON PASTE [email or web address] [email or web address] (ml) Colloids volume administered ( ml) Blood Product volume administered (ml) Total IV fluid infused 600 07/10/24 09:35 CARBON PASTE [email or web address] [email or web address] Anesthesia Postop Eval I: Summary Notes Anesthesia Complication No 07/10/24 09:35 CARBON PASTE [email or web address] [email or web address] Anesthesia Complication Comment: Post-operative progress note Anesthesia: Postop Eval II Evaluation Mental status: Awake Pain Level: 1 nausea: No Vomiting: No
--- NOTE | 2024-07-10 11:50 | PCM.POSTANE2 ---
Anesthesia Postop Eval I Sum Postop Eval Completion status Anesthesia document: Postop Eval 1 completed: Yes Anesthesia Postop Eval I Summary Anesthesia Postop Eval I Summary: Anesthesia Postop Eval I: Assessment Summary Airway patent Yes 07/10/24 09:35 [email or web address] Spontaneous unlabored Yes 07/10/24 09:35 [email or web address] [email or web address] respirations Mental status Awake,Calm 07/10/24 09:35 [email or web address] [email or web address] nausea No 07/10/24 09:35 [email or web address] [email or web address] Vomiting No 07/10/24 09:35 [email or web address] Anesthesia Postop Eval I: Fluid Summary Crystalloid volume administer 600 07/10/24 09:35 [email or web address] (ml) Colloids volume administered ( ml) Blood Product volume administered (ml) Total IV fluid infused 600 07/10/24 09:35 [email or web address] [email or web address] Anesthesia Postop Eval I: Summary Notes Anesthesia Complication No 07/10/24 09:35 [email or web address] [email or web address] Anesthesia Complication Comment: Post-operative progress note Anesthesia: Postop Eval II Evaluation Mental status: Awake Pain Level: 1 nausea: No Vomiting: No
[2024-07-10] MEDS: Lactated Ringers 1,000 ML 125 ML IV (12:35)
[2024-07-10] MEDS: Cefazolin 1 GM/50 ML BAG IV (13:22)
== END 2024-07-10 16:10 | disposition home or self-care (01) ==
LOC: SDC 05:28 → AC 05:28
PROVIDERS: PCP Nurse Practitioner Family; Referring Provider Student in an Organized Health Care Education/Training Program; Visit Provider Student in an Organized Health Care Education/Training Program
PROC: 0SRC0JZ Replacement of Right Knee Joint with Synthetic Substitute, Open Approach (ICD-10-PCS; CPT 27447; principal; 2024-07-10 07:00)
DX: M17.11 Unilateral primary osteoarthritis, right knee (principal); M11.261 Other chondrocalcinosis, right knee; I10 Essential (primary) hypertension; Z79.899 Other long term (current) drug therapy
CPT/HCPCS: 27447; S2900; 01402; 64447; 36415; 73560; 80048; 82040; 82962; 83735; 85025; 87077; 87081; 88305; 88311; 97162; C1776; J7040; J7120; J2405; J3475

== ENCOUNTER → 2024-09-14 | Outpatient (CLI) | payer OTHER, SELFPAY ==
--- NOTE | 2024-09-14 16:44 | CT_ITS ---
EXAM: CT LEFT LOWER EXTREMITY WITHOUT INTRAVENOUS CONTRAST CLINICAL INDICATION: OSTEOARTHRITIS TECHNIQUE: Helically acquired images were obtained of the left lower extremity without intravenous contrast. 2-D reformats were performed by the technologist. CTDIvol = ( 28.14 ) mGy, DLP = ( 1305.20 ) mGycm This CT exam was performed using one or more of the following dose reduction techniques: automated exposure control, adjustment of the mA and/or kV according to patient size, and/or use of iterative reconstruction technique. COMPARISON: No relevant prior studies available. FINDINGS: BONES/JOINTS: Severe tricompartmental osteoarthrosis which is worse at the medial femorotibial compartment with slight lateral dictation of the tibia relative to the femur on a degenerative basis. Moderate to large joint effusion with no significant synovitis or intra-articular ossific bodies. No acute fracture. No subluxation. Normal alignment. SOFT TISSUES: No soft tissue swelling or gas. No radiopaque foreign body. BLADDER: Decompressed appearance of the bladder. OTHER FINDINGS: Distal colonic diverticulosis without acute diverticulitis. CT/Extremity Lower without Contra IMPRESSION: 1. Severe tricompartmental osteoarthrosis which is worse at the medial femorotibial compartment with slight lateral dictation of the tibia relative to the femur on a degenerative basis. 2. Moderate to large joint effusion with no significant synovitis or intra-articular ossific bodies. Electronically Signed: Pedro Boothe MD at 18:53 EST ,
[2024-09-14 17:05] LABS: Absolute Lymphocyte Count 1.82 X10^3/uL (0.83-4.51); Basophil# 0.06 X10^3/uL; Basophil% 0.7 % (0-1); Eosinophil# 0.18 X10^3/uL; Lymphocyte # 1.82 X10^3/ul (0.83-4.51); Lymphocyte % 19.8 % (19-41); Mean Corp Hgb Conc 33.3 g/dL (32-36); Mean Corpuscular Hgb 30.5 pg (27.0-32.0); Mean Corpuscular Volume 91.6 fL (80-94); Mean Platelet Vol. 8.7 fl (6.2-12.0); Monocyte# 1.09 X10^3/uL; Monocyte% 11.9 % (0-10); NRBC Flagged by Analyzer 0 % (0-5); Neutrophil # 6.01 X10^3/uL (2.7-7.7); Neutrophil % 65.3 % (47-70); Platelet Count 266 K/mm3 (150-450); RBC Distribution Width SD 43.7 fl (35.1-43.9); Red Blood Count 4.91 M/mm3 (4.6-6.2); White Blood Count 9.2 K/mm3 (4.4-11.0)
[2024-09-14 17:55] LABS: Magnesium 2.3 mg/dL (1.6-2.6)
[2024-09-14 18:16] LABS: Anion Gap 5 (5-15); BUN 23 mg/dL (7-18); BUN/Creat Ratio 16.4 RATIO (10-20); Calcium,Total 9.7 mg/dL (8.5-10.1); Chloride 107 mmol/L (98-107); EST Glomerular Filtration Rate 54 mL/min (>60); Est Glom Filt Rate - Afr Amer 66 mL/min (>60); Glucose 92 mg/dL (74-106); Potassium 4.3 mmol/L (3.5-5.1); Sodium Level 139 mmol/L (136-145)
== END | disposition home or self-care (01) ==
PROVIDERS: Anesthesiology; PCP Nurse Practitioner Family; Referring Provider Student in an Organized Health Care Education/Training Program; Visit Provider Student in an Organized Health Care Education/Training Program
DX: Z01.818 Encounter for other preprocedural examination (principal); M17.12 Unilateral primary osteoarthritis, left knee
CPT/HCPCS: 36415; 73700; 80048; 83735; 85025; 87081

== ENCOUNTER 2024-09-18 09:12 | Day surgery (SDC) | payer OTHER, SELFPAY ==
[2024-09-18] VITALS (12 sets, daily range): BP systolic 92–156; BP diastolic 52–100; PULSE 64–90; RESP 16–18; TEMP 36.1–36.6; O2SAT 93–98; BMI 31.6
--- NOTE | 2024-09-18 09:44 | PRE.ANES_ITS ---
ASA Classification* ASA Classification ASA Classification: 3 Assessment & Plan Anesthesia* Anesthesia Assessment Anesthesia Assessment: Discussed sedation and/or anesthesia options, risks, benefits, and alternatives with patient/parents/legal guardian/POA. Questions invited. The patient/parents/legal guardian/POA seems to understand and agrees to proceed with anesthesia plan. Reviewed the physical assessment, medical history, allergy history and patient home medications list prior to surgery/procedure/anesthetic and documented any changes. Performed airway and anesthesia risk assessments. Anesthesia Type Anesthesia Type: Spinal and Block Anesthesia Focused Assessment* Airway Assessment Mouth opens: >3 cm Mallampati Score: II Focused Labs Anesthesia Preop lab: CBC WBC 9.2 K/mm3 (4.4-11.0) 09/14/24 16:45 RBC 4.91 M/mm3 (4.6-6.2) 09/14/24 16:45 Hgb 15.0 g/dL (13.0-16.5) 09/14/24 16:45 Hct 45.0 % (40-54) 09/14/24 16:45 Plt Count 266 K/mm3 (150-450) 09/14/24 16:45 CHEMISTRY Potassium 4.3 mmol/L (3.5-5.1) 09/14/24 16:45 Sodium 139 mmol/L (136-145) 09/14/24 16:45 Magnesium 2.3 mg/dL (1.6-2.6) 09/14/24 16:45 Phosphorus 3.1 mg/dL (2.5-4.9) 05/23/14 05:45 BUN 23 mg/dL (7-18) H 09/14/24 16:45 Creatinine 1.40 mg/dL (0.70-1.30) H 09/14/24 16:45 Glucose 92 mg/dL (74-106) 09/14/24 16:45 POC Glucose 98 mg/dL (74-106) 07/10/24 06:00 TSH 1.73 uIU/mL (0.358-3.74) 05/03/15 11:11 COAG Pre-Assessment Diagnosis/Proposed Procedure Planned Operative Procedure(s): LEFT TOTAL KNEE ARTHROPLASTY Anesthesia History Anesthesia History - plowing gardens: Anesthesia History - plowing gardens Hx Hospitalization No 08/28/24 11:21 Any Problems With Anesthesia No 08/28/24 11:21 Cholinesterase deficiency No 08/28/24 11:21 You/Your Family Experience No 08/28/24 11:21 fever (hyperthermia) with Relationship Recent Exposure to Contagious No 07/10/24 06:12 Disease Does patient have nerve No 08/28/24 11:21 stimulator Patient instructed to have device shut off --Does patient have Pacemaker or ICD? When Was Last Pacemaker Check QUESTION #4 FULL TEXT: You/Your Family Experience fever (hyperthermia) with Anesthesia Last Oral Intake Last Oral intake: Last Oral Intake NPO since Meds taken in AM with sips of water? Meds patient instructed to take am of surgery PONV PONV - plowing gardens: PONV - plowing gardens Female No 08/28/24 11:21 HX of Motion Sickness No 08/28/24 11:21 HX of N/V After Surgery No 08/28/24 11:21 Non-Smoker Yes 08/28/24 11:21 Duration of Surgery greater Yes 08/28/24 11:21 than 60 minutes Number of Risk Factors 2 08/28/24 11:21 PONV Score Moderate Risk 08/28/24 11:21 Height & Weight Height & Weight: Anesthesia: Height & Weight Height 5 ft 9 in 09/15/24 09:00 Weight: 96.615 kg 09/15/24 09:00 Respiratory Assessment Respiratory Assessment - plowing gardens: Respiratory Tract Infection Hx - plowing gardens Hx Respiratory Tract Infection No 08/28/24 11:21 STOP Sleep Apnea STOP Sleep Apnea - plowing gardens: STOP Sleep Apnea - plowing gardens Hx Hypertension Yes: CONTROLLED WITH MED 08/28/24 11:21 Hx Sleep Apnea Yes 08/28/24 11:21 CPAP Yes: NONCOMPLIANT 08/28/24 11:21 BIPAP No 08/28/24 11:21 Do you snore loudly (louder than talking or can be heard Do you often feel tired/ fatigued/ sleepy during daytime? Has anyone observed you stop breathing during sleep? STOP Results Positive 08/28/24 11:21 QUESTION #5 FULL TEXT : Do you snore loudly (louder than talking or can be heard through closed doors)? 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 Specify any problems Hx of Preganancy in last 3 N/A 08/28/24 11:21 Months Nurse Filling Out Transfusion DSCHRIBER 08/28/24 11:21 & Questions: Date: 08/28/24 08/28/24 11:21 Time: 11:23 08/28/24 11:21 Patient unable to answer at this time (ie. confused, unrespo /Reproduction History /Reproductive History - plowing gardens: /Reproductive Hx- plowing gardens Hx Now Gestational Age (in weeks): EDC: Hx Hx Para Hx Section SAB Active Medications Active Medications: Current Medications Generic Name Dose Route Start Last Admin Trade Name Freq PRN Reason Stop Dose Admin Acetaminophen 1,000 mg 09/18/24 11:15 Acetaminophen 500 Mg Tablet PO 09/18/24 11:16 X1 ONE Sodium Chloride 77.4 ml/ 0 ml 09/18/24 11:15 Ropivacaine 200 mg/ OPERA.SITE 09/18/24 11:16 Epinephrine HCl 0.6 mg/ X1 ONE Ketorolac Tromethamine 30 mg/ Morphine Sulfate 5 mg Dexamethasone Sodium Phosphate 10 mg 09/18/24 11:15 Dexamethasone 10 Mg/Ml Vial IV 09/18/24 11:16 X1 ONE Gabapentin 600 mg 09/18/24 11:15 Gabapentin 600 Mg Tablet PO 09/18/24 11:16 X1 ONE Lactated Ringer's 1,000 mls @ 999 mls/hr 09/18/24 11:15 IV 09/18/24 12:15 .Q1H1M NARESH Tranexamic Acid 1,000 mg/ 110 mls @ 660 mls/hr 09/18/24 11:15 Sodium Chloride IV 09/18/24 11:24 X1 ONE Tranexamic Acid 1,000 mg/ 110 mls @ 660 mls/hr 09/18/24 11:15 Sodium Chloride IV 09/18/24 11:24 X1 ONE Lactated Ringer's 1,000 mls @ 125 mls/hr 09/18/24 11:15 IV 09/18/24 19:14 .Q8H NARESH Lactated Ringer's 1,000 mls @ 75 mls/hr 09/18/24 11:15 IV 09/19/24 00:34 .[id number] NARESH Cefazolin Sodium 2 gm/ N/A 20 mls @ 400 mls/hr 09/18/24 11:15 IV 09/18/24 11:17 PREOP ONE Sodium Chloride 1,000 mls @ 15 mls/hr 09/18/24 09:30 IV 09/23/24 22:49 .Q48H NARESH Protocol Insulin Human Lispro 1 - 6 unit 09/18/24 11:15 Insulin Lispro 100 Unit/Ml Insuln.Pen SC 09/18/24 18:00 Q4H PRN PRN BG>/= 180, SEE PROTOCOL Protocol Sodium Chloride 5 - 15 ml 09/18/24 11:15 0.9% Nacl Peripheral Flush Adult/Peds IV UD PRN SALINE FLUSH PFSH Medical History CPAP (continuous positive airway pressure) dependence Wears glasses Wears contact lenses Alcohol use Seizures Non-smoker History of echocardiogram Hypertension Home Medications ?Medication ?Instructions ?Recorded ?Last Taken ?Type ascorbic acid (vitamin C) 500 mg 500 mg PO DAILY 06/16/24 Unknown History capsule,extended release (Vitamin C) losartan 25 mg tablet 25 mg PO DAILY 06/16/24 07/10/24 History magnesium 200 mg tablet 500 mg PO DAILY 06/16/24 Unknown History Allergy/AdvReac Type Severity Reaction Status Date / Time No Known Allergies Allergy Verified 08/28/24 11:16 Surgical History Hx of total knee arthroplasty History of reverse total replacement of right shoulder joint (~10/2023) History of shoulder surgery History of hernia surgery History of back surgery Social History Smoking Status: Never smoker Review of Systems (Anesthesia) ROS Narrative System reviewed and no additional complaints, except as documented.
[2024-09-18] MEDS: Acetaminophen 500 MG Tablet 1000 MG PO (09:59)
[2024-09-18] MEDS: Gabapentin 600 MG Tablet PO (10:00)
[2024-09-18] MEDS: 0.9% Normal Saline (1000mL) 1,000 ML 15 ML IV (10:00)
[2024-09-18] MEDS: Magnesium 1 GM over 15 mins IV (10:01)
[2024-09-18 10:33] LABS: Bedside Glucose 89 mg/dL (74-106)
[2024-09-18] MEDS: TXA 1000mg in NS100 100ml (IVPB at Incision) 660 MG IV (11:08)
[2024-09-18] MEDS: Cefazolin 2 GM in Syringe IV (11:08)
[2024-09-18] MEDS: dexAMETHasone 10 MG/ML Vial IV (11:08)
--- NOTE | 2024-09-18 11:15 | KNEE_PTH ---
PATIENT: SAE BYRD [place]: [facility] [place][id number] AGE/SX: 64/M ROOM: RE09/18/[address]: Dr. Kamran Dill DO : 1960 BED: DIS: 09/18/2024 SPEC #: [id number] RECD: 09/18/24 15:10 STATUS: MICHAEL REQ #: [id number] DANIEL: 09/18/24 11:[address]: Kamran Dill DEPT: SURGICAL PATHOLOGY RECD BY: Konstantin Power ENTERED: 09/19/24 07:09 SP TYPE: TOTAL KNEE OTHR DR: Baylee Alexander, KISHA Tissues: Knee, NOS Procedures: Decalcification bone/plaque Surgery Specimen Level IV HEADER OPERATION: Robotic assisted left total knee arthroplasty PRE-OP DIAGNOSIS: Unilateral primary osteoarthritis, left knee TISSUE SUBMITTED: Left knee bone and tissue MICROSCOPIC DIAGNOSIS Bone and tissue of left knee, total knee resection: Severe degenerative joint disease. AM: 09/22/2024 MICROSCOPIC DESCRIPTION Slides are reviewed. GROSS DESCRIPTION Received is one container designated bone and soft tissue left knee. The specimen consists of multiple fragments of braxton-yellow bone measuring in aggregate 13.0 x 9.0 x 3.0 cm. No soft tissue is identified. A number of bony fragments contain articular surfaces consistent with tibial plateau and femoral condyle and displaying prominent osteophyte formation, eburnation and bone erosion. Math Tutor sections are submitted in one cassette after decalcification. / SPARKLE. 09/19/2024 TC:5 CPT: 42885, 80273
[2024-09-18] MEDS: TXA 1000mg in NS100 100ml (IVPB at Closure) 660 MG IV (12:24)
[2024-09-18] MEDS: JPS (Morphine 10mg/ml) OPERA.SITE (12:26)
--- NOTE | 2024-09-18 13:10 | OP.PCM_ITS ---
Operative Report (Standard) Operative Information Date of Procedure: 09/18/24 Pre-Operative Diagnosis: Left knee osteoarthritis Post-Operative Diagnosis: Left knee osteoarthritis Surgery/Procedure Performed: Left total knee arthroplasty with robotic arm assistance operations technician: Yes Bale Tie Machine Operator: Elizabeth Bhat Tasks completed by airplane first officer: Opening & closing, Implanting device, Hemostasis: Electrocautery and Retracting Additional language assistant?: No Type of Anesthesia: Spinal/Supplemental RN Documented Start/Stop Times: Operation Date: 09/18/24 11:15 Case Time Into Pre-Op 09/18/24 09:25 Anesthesia Start 09/18/24 11:00 Into Room 09/18/24 11:00 Procedure Start 09/18/24 11:16 Procedure End 09/18/24 12:47 Anesthesia End 09/18/24 12:53 Out of Room 09/18/24 12:53 Into Recovery 09/18/24 12:55 Procedure Start Time: 11:16 Procedure Stop Time: 12:47 Select all DRAINS/GRAFTS/IMPLANTS that apply: Drains Drain details: None and Implanted device Implanted device details: [employer] press-fit CR size 4 femur, press-fit tibial baseplate size #5, CS polyethylene insert 11 mm Estimated Blood Loss: 50 cc Fluids Replaced: Per anesthesia record Specimen collected: Yes Description of specimen(s) removed: Left total knee resections Description of surgery: Indications: This is a 64-year-old male seen in the outpatient setting diagnosed with left knee osteoarthritis with significant varus deformity. He failed nonoperative management with intra-articular corticosteroid injections, activity modification, bracing, [id number] analgesics. X-rays revealed grade 4 medial compartment changes. I recommended a left total knee arthroplasty. The risk, benefits, alternatives to procedure reviewed with patient at length and he agreed to proceed. Risks included but were not limited to bleeding, infection, loss of life or limb, need for additional surgery, persistent pain, intraoperative or postoperative fracture, instability, loosening of components, wound complications, stiffness, neurovascular injury, DVT or PE. Patient expressed understanding these risks and wished to proceed with surgery. Informed consent was obtained in the outpatient setting. Description of procedure: Patient was identified in the preoperative holding area by name, medical record number, and date of . Informed consent was confirmed with the patient. The operative knee was marked with a surgical marker. At time of his procedure, patient brought to the operative suite and positioned supine a standard operating table. Anesthesia then administered a spinal anesthetic. He was then repositioned in the supine position with all bony prominences well-padded. We then placed a well-padded pneumatic tourniquet on the left upper thigh. The left upper extremity was brought across patient's chest throughout the procedure. We then prepped and draped the left lower extremity in a normal, sterile orthopedic fashion. We performed a timeout with all parties in attendance in agreement with the side, site, operation be performed. No concerns were voiced and would like to proceed with surgery. 2 g Ancef was administered prior to the incision by anesthesia staff as well as 1 g IV TXA. First I exsanguinated the left lower extremity with a Esmarch bandage. Tourniquet was inflated to 250 mmHg which remained elevated for approximately 1 hour. Esmarch was removed. I planned a standard midline approach to the left knee approximately 15 cm in length. Skin was sharply incised with a 10 blade scalpel developing full-thickness layers down to the retinaculum. Layers were developed identifying the VMO. I then planned a standard medial parapatellar arthrotomy performed in flexion. The anterior horn of the medial meniscus was released. Hoffa's fat pad was then released. I then everted the patella in extension and brought the knee into 90 degrees of flexion. The anterior horn of the lateral meniscus was then released. The ACL was split in its mid substance with a 10 blade. We then brought the knee back into extension. The patella was examined and demonstrated grade I chondromalacia. Peripheral osteophytes were excised and the patella was left kw[place]luk. I then placed pins in the metaphyseal distal femur medial to lateral for the Jake arrays. In similar fashion, I made a 2 cm incision approximately a handsbreadth distal to the tibial tubercle along the medial aspect of the tibia, drilling 2 bicortical pins for the tibial array. The knee was brought into flexion. The patella was subluxed laterally but not everted. Medial lateral retractors were placed. We then utilized the [email or web address] software to confirm our planned surgical procedure and oriented with the patient's osseous anatomy. All checks with the [email or web address] system were confirmed. Patient had a significant fixed varus deformity after performing stress examination utilizing the [email or web address] software. We elected to place the tibial baseplate in 2 degrees of varus to allow for appropriate balancing. Sawblade was then brought in. I first started with the tibial cut, ensuring protection of the MCL and patellar tendon. A tibial wafer was then excised. I then proceeded to make the posterior femoral, anterior, anterior chamfer cuts with the same blade. Ligaments were protected with [employer] retractors. Sawblade was then exchanged to perform the distal femoral and posterior chamfer cuts. The robot was then removed from the surgical field. Remaining loose bone and meniscus was excised carefully. Posterior osteophytes were removed from the distal femur with a curved osteotome and rongeur. Trial components were then placed. Balance was excellent in both extension and 90 degrees flexion. No mid flexion instability was apparent. Patellofemoral tracking was excellent. We then marked for tibial baseplate. Distal femoral pegs were drilled. Tibial keel was punched. Press-fit drill guide was then applied and peg holes were drilled for the press-fit tibial component. Trials were removed. Periarticular block was administered. The wound was copiously irrigated with normal saline solution. Tibial and subsequently femoral components were impacted with excellent pullout strength. Tourniquet was deflated. Hemostasis was excellent. 3-minute diluted sterile Betadine soak was performed. An additional 1 g TXA was administered IV. I selected a size 11 mm polyethylene which was placed and impacted per licensing worker recommendations. Final components appeared very well balanced with excellent range of motion. There was no significant remaining flexion contracture. The wound was copiously irrigated with normal saline solution. Capsule was closed watertight with #1 strata fix barbed suture. Deeper report muscle layer was reapproximated with 0 Vicryl suture. Dermis was reapproximated buried interrupted 2-0 Vicryl suture. Skin was finally reapproximated nati. Patient tolerated the procedure well without apparent complication. He was safely awakened in the operative suite, transferred to his hospital bed and subsequently to PACU in stable condition. Need for skilled language assistant: Elizabeth Bhat PA-C was critical to the outcome of the case. During the course of the procedure the physician language assistant played a vital role. Her intimate knowledge of my steps in the procedure aided in safe and expedient completion of the procedure. The PA played a vital role in positioning particularly in obtaining the appropriate positioning. The PA was also vital in the retraction of soft tissues during the exposure and projecting vital structures. The PA was also vital and protecting soft tissues during times of bony cuts. She also played a vital role in closure with my direct supervision. The PA was also important during reduction and dislocation of the joint and trials intraoperatively. Post Operative Plan: Anticipate same-day discharge after meeting same-day surgery criteria. Physical therapy to assess the patient in preoperative holding area after spinal anesthetic resolves. Weightbearing: Range of motion and weightbearing as tolerated left lower extremity. Antibiotics: Ancef 1 g IV prior to discharge DVT Prophylaxis: Twice daily aspirin 81 mg starting postoperative day #1, early mobilization and EDWARD hose Pratt: None Dressing: Maintain silver dressing x5 days X-Rays: 2-week x-rays in the office. Follow-up: 2 weeks in my office for staple removal Surgical Findings: Severe left knee osteoarthritis with fixed varus deformity. Complications Complications: No Admit VTE Documentation VTE Present on Admission: No VTE Mechan Device Prophylaxis: SCD's and Thigh High EDWARD Hose VTE Pharm Prophylaxis ordered?: Yes
--- NOTE | 2024-09-18 13:10 | RAD_ITS ---
STUDY: X-RAY - LEFT KNEE REASON FOR EXAM: Male, 64 years old. Post op -- in PACU TECHNIQUE: 2 view(s) of the knee. COMPARISON: Comparison is made with prior study September 08, 2016. FINDINGS: Normal visualized distal femur. Normal visualized proximal tibia and fibula. Normal proximal tibiofibular articulation. Focal calcification is seen overlying the medial distal femoral condyle in keeping with Raymon Stieda disease. The patient is status post total knee replacement. There is good alignment. Postoperative soft tissue changes. RAD/Knee 1 or 2 Views IMPRESSION: Status post total knee replacement. The alignment. Postoperative soft tissue changes. Electronically Signed: Eric Martinez MD at 14:57 EST ,
--- NOTE | 2024-09-18 13:28 | PCM.POST.ANE ---
Anesthesia: Postop Eval I Current Vital Signs Temperature: 97 F Pulse Rate: 78 Blood Pressure: 105/76 Respiratory Rate: 18 Pulse Ox: 95 Assessment Airway patent: Yes Spontaneous unlabored respirations: Yes Mental status: Awake and Calm nausea: No Vomiting: No Anesthesia Complication: No Fluid Hydration Crystalloid volume administer (ml): 700 Total IV fluid infused: 700 Progress Note Anesthesia document: Postop Eval 1 completed: Yes
--- NOTE | 2024-09-18 13:30 | PCM.POSTANE2 ---
Anesthesia Postop Eval I Sum Postop Eval Completion status Anesthesia document: Postop Eval 1 completed: Yes Anesthesia Postop Eval I Summary Anesthesia Postop Eval I Summary: Anesthesia Postop Eval I: Assessment Summary Airway patent Yes 09/18/24 13:30 Spontaneous unlabored Yes 09/18/24 13:30 respirations Mental status Awake,Calm 09/18/24 13:30 nausea No 09/18/24 13:30 Vomiting No 09/18/24 13:30 Anesthesia Postop Eval I: Fluid Summary Crystalloid volume administer 700 09/18/24 13:30 (ml) Colloids volume administered ( ml) Blood Product volume administered (ml) Total IV fluid infused 700 09/18/24 13:30 Anesthesia Postop Eval I: Summary Notes Anesthesia Complication No 09/18/24 13:30 Anesthesia Complication Comment: Post-operative progress note Anesthesia: Postop Eval II Evaluation Mental status: Awake Pain Level: 0 nausea: No Vomiting: No
[2024-09-18] MEDS: 0.9% Normal Saline (1000mL) 1,000 ML 125 ML IV (14:05)
--- NOTE | 2024-09-18 14:09 | POSTOPAN2_ITS ---
Anesthesia Postop Eval I Sum Postop Eval Completion status Anesthesia document: Postop Eval 1 completed: Yes Anesthesia Postop Eval I Summary Anesthesia Postop Eval I Summary: Anesthesia Postop Eval I: Assessment Summary Airway patent Yes 09/18/24 14:09 LAMINATION MACHINE OPERATOR.MDOT Spontaneous unlabored Yes 09/18/24 14:09 LAMINATION MACHINE OPERATOR.OT respirations Mental status Awake,Calm 09/18/24 14:09 LAMINATION MACHINE OPERATOR.MDOT nausea No 09/18/24 14:09 LAMINATION MACHINE OPERATOR.MDOT Vomiting No 09/18/24 14:09 LAMINATION MACHINE OPERATOR.MDOT Anesthesia Postop Eval I: Fluid Summary Crystalloid volume administer 900 09/18/24 14:09 LAMINATION MACHINE OPERATOR.MDOT (ml) Colloids volume administered ( ml) Blood Product volume administered (ml) Total IV fluid infused 900 09/18/24 14:09 LAMINATION MACHINE OPERATOR.LOREE Anesthesia Postop Eval I: Summary Notes Anesthesia Complication No 09/18/24 14:09 LAMINATION MACHINE OPERATOR.OT Anesthesia Complication Comment: Post-operative progress note Anesthesia: Postop Eval II Evaluation Mental status: Awake and Calm Pain Level: 0 nausea: No Vomiting: No Complications Anesthesia Complication: No
--- NOTE | 2024-09-18 14:09 | PCM.POST.ANE ---
Anesthesia: Postop Eval I Current Vital Signs Temperature: 97.7 F Pulse Rate: 90 Blood Pressure: 113/52 Respiratory Rate: 16 Pulse Ox: 95 Oxygen Delivery Method: Room Air Assessment Airway patent: Yes Spontaneous unlabored respirations: Yes Mental status: Awake and Calm nausea: No Vomiting: No Anesthesia Complication: No Fluid Hydration Crystalloid volume administer (ml): 900 Total IV fluid infused: 900 Progress Note Anesthesia document: Postop Eval 1 completed: Yes
--- NOTE | 2024-09-18 14:09 | PCM.POSTANE2 ---
Anesthesia Postop Eval I Sum Postop Eval Completion status Anesthesia document: Postop Eval 1 completed: Yes Anesthesia Postop Eval I Summary Anesthesia Postop Eval I Summary: Anesthesia Postop Eval I: Assessment Summary Airway patent Yes 09/18/24 14:09 LAP RUNNER.MDOT Spontaneous unlabored Yes 09/18/24 14:09 LAP RUNNER.OT respirations Mental status Awake,Calm 09/18/24 14:09 LAP RUNNER.MDOT nausea No 09/18/24 14:09 LAP RUNNER.MDOT Vomiting No 09/18/24 14:09 LAP RUNNER.MDOT Anesthesia Postop Eval I: Fluid Summary Crystalloid volume administer 900 09/18/24 14:09 LAP RUNNER.MDOT (ml) Colloids volume administered ( ml) Blood Product volume administered (ml) Total IV fluid infused 900 09/18/24 14:09 LAP RUNNER.LOREE Anesthesia Postop Eval I: Summary Notes Anesthesia Complication No 09/18/24 14:09 LAP RUNNER.OT Anesthesia Complication Comment: Post-operative progress note Anesthesia: Postop Eval II Evaluation Mental status: Awake and Calm Pain Level: 0 nausea: No Vomiting: No Complications Anesthesia Complication: No
[2024-09-18] MEDS: Cefazolin 1 GM/50 ML BAG IV (17:05)
[2024-09-18] MEDS: oxyCODONE 5 MG Tablet PO (17:05)
== END 2024-09-18 18:10 | disposition home or self-care (01) ==
LOC: SDC 09:12 → AC 09:37
PROVIDERS: PCP Nurse Practitioner Family; Referring Provider Student in an Organized Health Care Education/Training Program; Visit Provider Student in an Organized Health Care Education/Training Program
PROC: 0SRD0JZ Replacement of Left Knee Joint with Synthetic Substitute, Open Approach (ICD-10-PCS; CPT 27447; principal; 2024-09-18 10:45)
DX: M17.12 Unilateral primary osteoarthritis, left knee (principal); M21.162 Varus deformity, not elsewhere classified, left knee; I10 Essential (primary) hypertension; Z79.899 Other long term (current) drug therapy; Z79.82 Long term (current) use of aspirin; Z96.651 Presence of right artificial knee joint; E66.9 Obesity, unspecified; Z68.30 Body mass index [BMI] 30.0-30.9, adult
CPT/HCPCS: 27447; S2900; 01402; 64447; 73560; 82962; 88305; 88311; 97162; C1776; J2405; J3475